=== PATIENT | female | born 1945 | race Caucasian/White ===

== ENCOUNTER → 2021-06-20 | Outpatient (CLI) | payer MEDICARE ==
--- NOTE | 2021-06-20 11:20 | Diagnostic Imaging Report ---
INDICATION: Dysphagia. Procedure was performed in conjunction with speech pathology. Video fluoroscopy was performed during swallowing of barium at multiple consistencies. Patient ingested thin liquid as well as applesauce, banana, ground meat and cracker consistency. A total of 59 seconds of fluoroscopic time was utilized. Oral phase unremarkable. There is normal epiglottic tilt and laryngeal elevation. No penetration or aspiration was observed. Patient does appear to have a Zenker's diverticulum in the upper esophagus which did fill with ingested material. IMPRESSION: No evidence of penetration or aspiration. Patient does have a Zenker's diverticulum. Dictated by: Dictated on workstation # [id number]
== END ==
LOC: RAD 09:18
PROVIDERS: ATTEND Otolaryngology Otolaryngology/Facial Plastic Surgery
DX: K22.5 Diverticulum of esophagus, acquired (principal)
CPT/HCPCS: 74230